=== PATIENT | female | born 1975 | race Caucasian/White ===

== ENCOUNTER 2016-09-24 16:02 | Emergency (ER) ==
[2016-09-24 16:15] VITALS: BP 124/78; TEMP 98.4; BMI 42.8
[2016-09-24] MEDS ORDERED: MORPHINE 4 MG/ML SYRINGE IM STA ×2 (16:37→17:40)
[2016-09-24] MEDS ORDERED: ZOFRAN 4 MG/2 ML IM STA (16:37)
--- NOTE | 2016-09-24 17:02 | DI ---
EXAM: RIGHT FOOT, 3 VIEWS HISTORY: Trauma FINDINGS / IMPRESSION: Redemonstration of the distal fibular fracture. See same day ankle series report. Foot proper is intact with no dislocation or fracture.
--- NOTE | 2016-09-24 17:05 | DI ---
Exam: Three images of the right ankle. Comparison: None available. Reason for exam: Trauma. FINDINGS: There is a comminuted oblique fracture of the distal right fibula. No other fracture or dislocation is seen. The talar dome is intact. There is no widening of the medial lateral clear sp hima. Impression: Comminuted oblique fracture of the right distal fibula ([facility] B). Report faxed at [phone] hours on 09/24/2016.
--- NOTE | 2016-09-24 17:43 | ED.PDOC ---
General ED Provider: Dr. ROSALINDA LOVE Chief Complaint: Ankle Pain/Injury Stated Complaint: right ankle pain Time Seen by Physician: 16:00 (2 pm twisted ankle and fell felt a pop) Mode of Arrival: Walk-In Information Source: Patient Exam Limitations: No limitations Nursing and Triage Documentation Reviewed and Agree: Yes (flip flopp use and twisted ankle on right) Trauma/Injury Complaint Exam - Trauma Complaint/Exam Location of Pain or Injury: Reports: RLE (ankle ) Mechanism of Injury: Reports: Fall Onset/Duration: 4 hours ago Symptoms Are: Still present Timing of Treatment: Immediate Initial Severity: Severe Current Severity: Severe Character: Reports: Sharp Aggravating: Reports: Weight-bearing Alleviating: Reports: Rest, Immobilization Associated Signs and Symptoms: Denies: LOC, Confusion, Memory loss, Lethargy, Vomiting, Bleeding, Bruising, Swelling, Extremity disuse, Painful respiration, Hoarseness, Dysphagia, Hemoptysis, Significant blood loss Nexus Low Risk Criteria: No post-midline CS tender, No evidence of intoxicat., No Altered LOC, No focal neuro deficit, No distracting injuries Compartment Syndrome Risk Factors: Present: Pain Differential Diagnoses: Fracture, Sprain, Strain Review of Systems - Review Of Systems Constitutional: Reports: No symptoms Eyes: Reports: No symptoms Ears, Nose, Mouth, Throat: Reports: No symptoms Respiratory: Reports: No symptoms Cardiac: Reports: No symptoms GI: Reports: No symptoms : Reports: No symptoms Musculoskeletal: Reports: Other (right ankle pain) Skin: Reports: No symptoms Neurological: Reports: No symptoms Endocrine: Reports: No symptoms Hematologic/Lymphatic: Reports: No symptoms All Other Systems: Reviewed and Negative Past Medical History - Past Medical History Previously Healthy: Yes Endocrine: Reports: None Cardiovascular: Reports: Hypertension Respiratory: Reports: None Hematological: Reports: None Gastrointestinal: Reports: None Genitourinary: Reports: None Neuro/Psych: Reports: None Musculoskeletal: Reports: None Cancer: Reports: None Last Menstrual Period: N/A - Surgical History General Surgical History: Reports: Unknown - Family History Family History: Reports: Unknown - Social History Smoking Status: Current every day smoker, Heavy tobacco smoker Hx Substance Use: Yes ([facility]) Alcohol Screening: Occasionally - Immunizations Tetanus Shot up to Date: Yes Physical Exam - Physical Exam Appearance: Well-appearing, No pain distress, Well-nourished Eyes: SANTA, EOMI, Conjunctiva clear ENT: Ears normal, Nose normal, Oropharynx normal Respiratory: Airway patent, Breath sounds clear, Breath sounds equal, Respirations nonlabored Cardiovascular: RRR, Pulses normal, No rub, No murmur GI/: Soft, Nontender, No masses, Bowel sounds normal, No Organomegaly Musculoskeletal: Limited ROM (right ankle ) Skin: Warm, Dry, Normal color Neurological: Sensation intact, Motor intact, Reflexes intact, Cranial nerves intact, Alert, Oriented Psychiatric: Affect appropriate, Mood appropriate Interpretation - Radiology Interpretation Radiology Interpretation By: Radiologist Radiology Results: Positive (fracture) Critical Care Note - Critical Care Note Total Time (mins): 0 Course - Course Orders, Labs, Meds: Orders Category Date Time Status Morphine Sulfate [Morphine 4 mg/ml Syringe] MEDS 09/24/16 16:37 Discontinued 4 mg IM ONCE STA Ondansetron HCl/Pf [Zofran 4 mg/2 ml] MEDS 09/24/16 16:37 Discontinued 4 mg IM ONCE STA ANKLE, RIGHT MIN 3 VIEWS Stat RADS 09/24/16 16:37 Completed FOOT, RIGHT 3 VIEWS Stat RADS 09/24/16 16:37 Completed Medications Discontinued Medications Generic Name Dose Route Start Last Admin Trade Name Freq PRN Reason Stop Dose Admin Morphine Sulfate 4 mg 09/24/16 16:37 09/24/16 16:41 Morphine 4 Mg/Ml Syringe IM 09/24/16 16:38 4 mg ONCE STA Administration Ondansetron HCl 4 mg 09/24/16 16:37 09/24/16 16:43 Zofran 4 Mg/2 Ml IM 09/24/16 16:38 4 mg ONCE STA Administration Vital Signs: Temp Pulse Resp BP Pulse Ox 09/24/16 16:02 98.4 F 72 16 124/78 95 Departure - Departure Time of Disposition: 17:45 Disposition: HOME SELF-CARE Discharge Problem: Ankle pain Instructions: Ankle Fracture (ED) Condition: Good Pt referred to PMD for follow-up: No Additional Instructions: Please call your Family Physician as soon as possible to schedule a follow-up appointment. Allergies/Adverse Reactions: Allergies bee venom protein (honey bee) Adverse Reaction (Verified 09/24/16 16:12) tramadol [From Ultram] Adverse Reaction (Verified 09/24/16 16:31) Home Medications: Ambulatory Orders Alprazolam [Xanax] 1 mg PO TID PRN 09/24/16 Budesonide/Formoterol Fumarate [Symbicort 160-4.5 Mcg Inhaler] 1 puff IH BID 10/05 Dextroamphetamine/Amphetamine [Adderall 30 mg Tablet] 30 mg PO BID 09/24/16 Hydrocodone/Acetaminophen [[place] 10-325 Tablet] 1 each PO Q8HR #30 tablet Oxycodone HCl/Acetaminophen [Oxycodone-Acetaminophen 10-325] 1 each PO DAILY 10/05 Quinapril HCl [Accupril] 5 mg PO BID 09/24/16 Quinapril HCl [Accupril] 20 mg PO DAILY 09/24/16 Venlafaxine HCl [Effexor] 150 mg PO BID 09/24/16
== END 2016-09-24 17:59 | disposition home or self-care (01) ==
LOC: ED 16:02
DX: S82.831A Other fracture of upper and lower end of right fibula, initial encounter for closed fracture (principal); W19.XXXA Unspecified fall, initial encounter; F17.210 Nicotine dependence, cigarettes, uncomplicated
CPT/HCPCS: 96372; 99283